=== PATIENT | male | born 1985 | race Caucasian/White ===

== ENCOUNTER 2019-07-15 16:10 | Emergency (ER) | payer BC ==
[2019-07-15 16:34] VITALS: BP 140/78
--- NOTE | 2019-07-15 16:50 | UC ---
Laceration HPI - HPI Summary HPI Summary: Is squash racket earlier today and sustained a small laceration just inferior to his nose. It gapes a little bit whenever he smiles and breaks open. His teeth are fine. - History Of Current Complaint Chief Complaint: UCLaceration Stated Complaint: FACIAL LAC Time Seen by Provider: 07/15/19 16:39 Hx Obtained From: Patient Laceration Location: Face Onset/Duration: Sudden Onset, Lasting Hours Severity: Mild Pain Intensity: 0 Aggravating Factors: Movement - Allergies/Home Medications Allergies/Adverse Reactions: Allergies Allergy/AdvReac Type Severity Reaction Status Date / Time No Known Allergies Allergy Verified 07/15/19 16:27 Home Medications: Home Medications Lisinopril TAB* [Prinivil TAB*] 5 mg PO DAILY 07/15/19 [History Confirmed ] PMH/Surg Hx/FS Hx/Imm Hx Previously Healthy: Yes - Surgical History Surgical History: None - Social History Alcohol Use: Daily Alcohol Amount: 3-4 oz hard liquor a day Substance Use Type: None Smoking Status (MU): Never Smoked Tobacco Review of Systems All Other Systems Reviewed And Are Negative: Yes Skin: Positive: Other - Facial abrasion and laceration Physical Exam - Summary Physical Exam Summary: Is nontoxic in appearance with stable vitals. Triage Information Reviewed: Yes Appearance: Well-Appearing, No Pain Distress, Well-Nourished Vital Signs: Initial Vital Signs Temp 98.5 F 07/15/19 16:28 Pulse 77 07/15/19 16:28 Resp 16 07/15/19 16:28 BP 140/78 07/15/19 16:28 Pulse Ox 99 07/15/19 16:28 ENT Exam: Other - He has a 4 mm superficial laceration just below his nose. It gapes open a millimeter. Dental Exam: Normal Laceration Course/Dx - Course/Dx Course Of Treatment: The wound came together well with clue. I normally do not used on the face however this is a very small laceration in an area that's not moving much. - Diagnosis Provider Diagnosis: Facial laceration Discharge ED - Sign-Out/Discharge Documenting (check all that apply): Patient Departure All imaging exams completed and their final reports reviewed: No Studies - Discharge Plan Condition: Stable Disposition: HOME Patient Education Materials: Facial Laceration (ED) Referrals: Courtney Webster PA [Primary Care Provider] - - Billing Disposition and Condition Condition: STABLE Disposition: Home
== END 2019-07-15 16:55 | disposition home or self-care (01) ==
LOC: UCEAST 16:10
DX: S01.81XA Laceration without foreign body of other part of head, initial encounter (principal); X58.XXXA Exposure to other specified factors, initial encounter; Y93.73 Activity, racquet and hand sports; Y92.9 Unspecified place or not applicable
CPT/HCPCS: 12011; 99211; G0463